=== PATIENT | female | born 1940 | race Caucasian/White ===

== ENCOUNTER 2025-06-25 05:34 | Day surgery (SDC) | payer MEDICARE, BC ==
[2025-06-12 15:30] LABS: MEAN PLATELET VOLUME 9.0 FL (7.4-10.4); PRE OP HEMATOCRIT 40.1 % (35.0-45.0); PRE OP HEMOGLOBIN 13.5 g/dL (12.0-16.0); PRE OP PLATELET COUNT 188 X10'3 (140-440); PRE OP WHITE BLOOD COUNT 4.6 10'3 (4.8-10.8); RED CELL DISTRIBUTION WIDTH 13.4 % (11.5-14.5)
[2025-06-12 15:44] LABS: CREATININE 0.70 MG/DL (0.40-0.90); PRE OP ALT 10 U/L (30-65); PRE OP ANION GAP 6 (8-16); PRE OP AST 17 U/L (10-37); PRE OP BILIRUB, TOTAL 0.5 MG/DL (0.0-1.0); PRE OP GLUCOSE 110 MG/DL (70-104); PRE OP POTASSIUM 4.1 MMOL/L (3.4-5.1); PRE OP SODIUM 138 MMOL/L (135-145); TOTAL CARBON DIOXIDE 29.1 MMOL/L (24-32); eGFR 80 ML/MIN
[~2025-06-25] VITALS: Ht 162.6 cm; Wt 118.9 kg
[~2025-06-25 05:34] MED LIST: CBD PO; CHOL10006 PO; EZET10TA80 PO; HYDR-3964 PO; OMEP20TA23 PO; TYLENOL PO
[2025-06-25 05:50] VITALS: BP 145/73; PULSE 78; RESP 17; TEMP 97.8; O2SAT 96
[2025-06-25] MEDS: ceFAZolin 2gm/dext,iso 50mL 50 ML IV ONE (06:00)
[2025-06-25] MEDS: ringers solution, lacted 1,000 ML IV SCH (06:11)
[2025-06-25] MEDS ORDERED: BUPIVAcaine/PF 2.5mg/ml (0.25%) 10ml vial ONE (06:58)
[2025-06-25] MEDS: aprepitant 40mg capsule PO ONE (07:04)
[2025-06-25] MEDS ORDERED: fentaNYL/PF 50MCG/1 ML 2ML syringe ONE (07:07)
[2025-06-25] MEDS ORDERED: midazolam 1 mg/ML 2ml injection ONE (07:22)
[2025-06-25] MEDS ORDERED: LIDOcaine 2% (20mg/ml) 5ml vial ONE (07:22)
[2025-06-25] MEDS ORDERED: propofol inj 20 ML IV ONE (07:23)
[2025-06-25] MEDS ORDERED: dexamethasone sod phosphate 4mg/ml inj. ONE (07:24)
[2025-06-25] MEDS ORDERED: ondansetron/PF 4mg/2ml inj ONE (07:24)
[2025-06-25] MEDS ORDERED: morphine 4 MG/ML inj SYRINge IV PRN (07:40)
[2025-06-25] MEDS ORDERED: labetalol 20mg/4ml (5mg/ml) syringe IV PRN (07:40)
[2025-06-25] MEDS ORDERED: ringers solution, lacted 1,000 ML IV SCH (07:40)
[2025-06-25] MEDS ORDERED: ondansetron/PF 4mg/2ml inj IV PRN (07:40)
[2025-06-25] MEDS ORDERED: hydrALAZINE 20mg/ml inj. IV PRN (07:40)
[2025-06-25] MEDS ORDERED: HYDROmorphone/PF 0.2 MG/ML SYRINGE IV PRN ×2 (07:40)
[2025-06-25] MEDS ORDERED: acetaminophen 1,000mg/100ml IV 100 ML IV PRN (07:40)
[2025-06-25 07:48] VITALS: BP 121/73; PULSE 65; RESP 16; O2SAT 96
[2025-06-25 08:00] VITALS: BP 121/55; PULSE 71; RESP 16; O2SAT 97
--- NOTE | 2025-06-25 08:00 | OPERATIVE REPORT ---
Operative Report Providers to ~ Date of Procedure: Jun 25, 2025 Pre-Operative Diagnosis: Right carpal tunnel syndrome Post-Operative Diagnosis SAME as PRE-Op Procedure Performed Right open carpal tunnel release Surgeon: Mingo Spicer MD [employer]oc[employer] Racer None Anesthesiologist: Adriano Patten Type of Anesthesia: General Findings: Thickened right transverse carpal ligament. Complete release was performed. No stenotic areas over the nerve were noted after release. Nerve was visually intact. Complications None Prosthetics\Implants used: None Estimated Blood Loss: Minimal. Tourniquet time was 5 minutes at 275 mmHg Specimen Removed: None Description of Procedure: Patient is brought to the operating. Placed in a supine position. Preoperative antibiotics of 2 g of Ancef were given. General anesthesia was performed. Pat ient was maintained supine. Bony prominences were well padded. Bilateral lower extremity SCDs were placed. A tourniquet was placed high on the right upper extremity and the right upper extremity was prepped and draped in the usual sterile fashion. A time-out procedure was performed as per routine identifying the patient, site to be operated on, and procedure to be performed. Confirmed we are operating on the right wrist this morning. Patient received 2 g of Ancef. Esmarch tourniquet was used to exsanguinate the limb and tourniquet was inflated to 275 mmHg. I planned my typical incision between the thenar and hypothenar eminences. Sharp dissection was carried out through skin. Blunt dissection was carried out through the palmar fascia down to the transverse carpal ligament. I could clearly see the transverse carpal ligament identified by the transverse fibers. I made sure I had dissection distally enough to see the complete release distally as well as proximally. Once I did this, I used a scissors to enter the canal proximally bluntly. I then inserted a Crane elevator and swept the nerve away from the underlying surface of the transverse carpal ligament. Once I did this, I used a clean deep blade to release a small portion of the ligament and I repeated this process to protect the nerve until I released all of the nerve distally under direct visualization. I then turned my attention proximally and did a similar release of the transverse carpal ligament proximally at the level of the wrist until I had complete release. I could clearly see the nerve in continuity both proximally and distally. I then released the tourniquet at 5 minutes of tourniquet time and watch the nerve pink up with good blood flow. I then irrigated the wound out thoroughly with normal saline. Hemostasis was obtained mostly of skin level bleeding. I then closed the wound with 4-0 nylon suture in a horizontal mattress pattern. Final sponge and needle counts were correct. Sterile dressings were applied. Wrist was protected in a volar wrist splint. Patient was thereafter recovered without complications and sent to recovery in good condition. Counts repoted as correct: Yes X-Ray findings: Per PAT Cond no x-ray MINGO SPICER MD Jun 25, 2025 08:00
[2025-06-25 08:10] VITALS: BP 122/68; PULSE 64; RESP 18; O2SAT 96
[2025-06-25 08:20] VITALS: BP 145/56; PULSE 64; RESP 16; O2SAT 98
[2025-06-25 08:30] VITALS: BP 140/54; PULSE 68; RESP 15; O2SAT 98
== END 2025-06-25 08:48 | disposition home or self-care (01) ==
LOC: PAS 05:34
PROVIDERS: ATTEND Specialist
DX: G56.01 Carpal tunnel syndrome, right upper limb (principal); E66.01 Morbid (severe) obesity due to excess calories; E78.5 Hyperlipidemia, unspecified; K21.9 Gastro-esophageal reflux disease without esophagitis; Z68.43 Body mass index [BMI] 50.0-59.9, adult; Z90.49 Acquired absence of other specified parts of digestive tract; Z90.710 Acquired absence of both cervix and uterus; Z82.3 Family history of stroke; Z82.49 Family history of ischemic heart disease and other diseases of the circulatory system; Z85.038 Personal history of other malignant neoplasm of large intestine
CPT/HCPCS: 36415; 64721; 80053; 82948; 85025; A6402; A6449; A7000; J1100; J2003; J2250; J2405; J2704; J3010; J3490; J7030; J7120; J8501; Z7506; Z7512; Z7610